=== PATIENT | female | born 1955 | race Caucasian/White ===

== ENCOUNTER 2017-06-09 12:28 | Observation (INO) | payer MEDICARE, MEDICAID ==
[2017-06-09] MEDS ORDERED: HYDROmorphone 1 MG/ML Syringe IVPUSH ONE (13:34)
[2017-06-09] MEDS ORDERED: Sodium Chloride 0.9% 10 ML Syringe FLUSH PRN (13:34)
--- NOTE | 2017-06-09 13:36 | EDM.PDOC ---
ED HPI GENERAL MEDICAL PROBLEM - General Chief Complaint: Abdominal Pain Stated Complaint: ABDOMINAL PAIN Time Seen by Provider: 06/09/17 13:34 Source of Information: Reports: Patient, Family, Old Records, RN Notes Reviewed History Limitations: Reports: No Limitations - History of Present Illness INITIAL COMMENTS - FREE TEXT/NARRATIVE: 61-year-old female presents emergency department today with epigastric pain she is a former gastric bypass has had esophageal obstruction in the past secondary to fluid bolus, she states she was eating [employer] sandwich event happened again she's having difficulty swallowing her secretions any liquid products that she swallows gets regurgitated back up Left Upper Abdomen Pain Score (Numeric/FACES): 9 - Related Data Allergies Allergy/AdvReac Type Severity Reaction Status Date / Time venom-honey bee Allergy Severe Anaphylactic Verified 10/01/16 01:22 [bee venom (honey bee)] Shock Home Meds: Home Meds Loperamide [Imodium] 4 mg PO DAILY PRN 10/28/13 [History] Multivitamin [Multi-Vitamin Daily] 1 tab PO DAILY 10/28/13 [History] Zolpidem [Ambien] 5 mg PO BEDTIME PRN 10/28/13 [History] ClonazePAM [KlonoPIN] 1 mg PO BID PRN 12/16/14 [History] Levothyroxine 200 mcg PO DAILY 12/16/14 [History] Papaya [Papaya Enzyme] 1 tab PO QID PRN 12/16/14 [History] Calcium Citrate/Vitamin D3 [Calcium Citrate + D] 1 tab PO BID 07/30/15 [History] Cyanocobalamin (Vitamin B-12) [Cyanocobalamin Injection] 1,000 mcg IM ONETIME [History] Hydrocodone/Acetaminophen [Hydrocodon-Acetaminoph 7.5-325] 1 tab PO Q4H PRN [History] tiZANidine [Zanaflex] 4 mg PO TID PRN 07/30/15 [History] Past Medical History HEENT History: Reports: Impaired Vision Gastrointestinal History: Reports: Bowel Obstruction, Chronic Diarrhea Genitourinary History: Reports: Renal Calculus 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 Hematologic History: Reports: B12 Deficiency - Infectious Disease History Infectious Disease History: Reports: Chicken Pox, Measles, Mumps - Past Surgical History HEENT Surgical History: Reports: Adenoidectomy, Oral Surgery, Tonsillectomy GI Surgical History: Reports: Appendectomy, Bariatric Procedure, Cholecystectomy , Colonoscopy, EGD, Esophageal Dilatation, Hernia Repair/Other, Lysis of Adhesions Female Surgical History: Reports: Tubal Ligation Social & Family History - Family History Family Medical History: Noncontributory - Tobacco Use Smoking Status *Q: Current Every Day Smoker Years of Tobacco use: 46 Packs/Tins Daily: 0.7 Used Tobacco, but Quit: No Second Hand Smoke Exposure: Yes - Caffeine Use Caffeine Use: Reports: Coffee, Soda, Tea - Alcohol Use Days Per Week of Alcohol Use: 0 - Recreational Drug Use Recreational Drug Use: No Drug Use in Last 12 Months: Yes Recreational Drug Type: Reports: Marijuana/Hashish Recreational Drug Use Frequency: Monthly ED ROS GENERAL - Review of Systems Review Of Systems: See Below Constitutional: Reports: No Symptoms Respiratory: Reports: No Symptoms Cardiovascular: Reports: No Symptoms GI/Abdominal: Reports: Abdominal Pain, Difficulty Swallowing ED EXAM, GI/ABD - Physical Exam Exam: See Below Exam Limited By: No Limitations General Appearance: Alert, WD/WN, No Apparent Distress Respiratory/Chest: No Respiratory Distress, Lungs Clear, Normal Breath Sounds, No Accessory Muscle Use Cardiovascular: Regular Rate, Rhythm, No Murmur GI/Abdominal: Soft, Tenderness (Epigastric area) Course - Vital Signs Last Recorded V/S: Last Vital Signs Temp 98.1 F 06/09/17 12:44 Pulse 105 H 06/09/17 12:44 Resp 18 06/09/17 12:44 BP 127/88 06/09/17 12:44 Pulse Ox 95 06/09/17 12:44 - Orders/Labs/Meds Orders: Active Orders 24 hr Category Date Time Status Peripheral IV Care [RC] . DIRECTED Care 06/09/17 13:34 Ordered Sodium Chloride 0.9% [Saline Flush] Med 06/09/17 13:34 Ordered 10 ml FLUSH ASDIRECTED PRN Peripheral IV Insertion Adult [OM.PC] Urgent Oth 06/09/17 13:34 Ordered Medication Orders Sodium Chloride (Saline Flush) 10 ml FLUSH ASDIRECTED PRN PRN Reason: Keep Vein Open Meds: Medications Generic Name Dose Route Start Last Admin Trade Name Freq PRN Reason Stop Dose Admin Sodium Chloride 10 ml 06/09/17 13:34 Saline Flush FLUSH ASDIRECTED PRN Keep Vein Open Discontinued Medications Generic Name Dose Route Start Last Admin Trade Name Freq PRN Reason Stop Dose Admin Hydromorphone HCl 1 mg 06/09/17 13:34 Dilaudid IVPUSH 06/09/17 13:35 ONETIME ONE Departure - Departure Time of Disposition: 13:42 Disposition: Admitted As Inpatient 67 Condition: Fair Clinical Impression: Dysphagia Qualifiers: Dysphagia type: unspecified Qualified Code(s): R13.10 - Dysphagia, unspecified - Discharge Information Forms: ED Department Discharge - My Orders Last 24 Hours: My Active Orders 06/09/17 13:34 Peripheral IV Care [RC] . DIRECTED Sodium Chloride 0.9% [Saline Flush] 10 ml FLUSH ASDIRECTED PRN Peripheral IV Insertion Adult [OM.PC] Urgent - Assessment/Plan Last 24 Hours: My Active Orders 06/09/17 13:34 Peripheral IV Care [RC] . DIRECTED Sodium Chloride 0.9% [Saline Flush] 10 ml FLUSH ASDIRECTED PRN Peripheral IV Insertion Adult [OM.PC] Urgent Plan: Assessment Acuity = acute Site and laterality = dysphagia complicated in a patient with history of esophageal obstruction and gastric bypass Etiology = probably secondary to food bolus Manifestations = none Location of injury = Home Lab values = none Plan Discussed case with Dr. Winters general surgery agreed to evaluate the patient in the hospital plan for EGD tomorrow morning Patient was in agreement with the plan all questions were answered, This note was dictated using [employer] voice recognition software please call with any questions.
[2017-06-09] MEDS ORDERED: tiZANidine 4 MG Tab PO PRN (13:47)
[2017-06-09] MEDS ORDERED: Zolpidem 5 MG Tab PO PRN (13:47)
[2017-06-09] MEDS ORDERED: PAPAYA PO PRN (13:47)
[2017-06-09] MEDS ORDERED: Acetaminophen/HYDROcodone 325-7.5 MG Tab PO PRN (13:47)
[2017-06-09] MEDS ORDERED: Loperamide 2 MG Cap PO PRN (13:47)
[2017-06-09] MEDS ORDERED: ClonazePAM 1 MG Tab PO PRN (13:47)
[2017-06-09] MEDS: Lactated Ringers 1,000 ML IV SCH (15:35)
[2017-06-09] MEDS ORDERED: PAPAYA ENZYME PO PRN (15:37)
[2017-06-09] MEDS ORDERED: Ondansetron 4 MG/2 ML SDV IVPUSH PRN (16:24)
[2017-06-09] MEDS ORDERED: Naloxone 0.4 MG/ML SDV IV PRN (16:32)
[2017-06-09] MEDS: HYDROmorphone/Normal Saline 15 MG/30 ML PCA IV PRN (16:55)
[2017-06-09] MEDS ORDERED: Calcium Carbonate/Vitamin D3 1500 MG-400 Units Tab PO SCH (21:00)
[2017-06-09] MEDS ORDERED: Nicotine 14 MG/24 Hr Patch TRDERM ONE (23:00)
[2017-06-10] MEDS: Lactated Ringers 1,000 ML IV SCH
[2017-06-10] MEDS: HYDROmorphone/Normal Saline 15 MG/30 ML PCA IV PRN (05:36)
[2017-06-10] MEDS ORDERED: Midazolam 1 MG/ML 2 ML SDV ONE (06:56)
[2017-06-10] MEDS ORDERED: fentaNYL 100 MCG/2 ML SDV ONE (06:56)
[2017-06-10] MEDS ORDERED: Propofol 200 MG/20 ML SDV ONE (06:56)
[2017-06-10] MEDS ORDERED: Glycopyrrolate 0.2 MG/ML 2 ML SYRINGE IVPUSH ONE (07:00)
[2017-06-10] MEDS ORDERED: Levothyroxine 100 MCG Tab PO SCH (07:30)
[2017-06-10] MEDS ORDERED: Multivitamins with Iron/Calcium/Folic Acid/Minerals Tab PO SCH (09:00)
[2017-06-10] MEDS ORDERED: Nicotine 14 MG/24 Hr Patch TRDERM SCH (09:00)
[2017-06-10 09:31] VITALS: BP 91/57
[2017-06-10] MEDS ORDERED: Cyanocobalamin (Vitamin B12) 1,000 MCG/ML SDV IM ONE (10:44)
--- NOTE | 2017-06-10 17:48 | PCM.PN ---
- General Info Date of Service: 06/10/17 Functional Status: Reports: pain controlled - Review of Systems General: Reports: No Symptoms HEENT: Reports: no symptoms Pulmonary: Reports: no symptoms Cardiovascular: Reports: No Symptoms Gastrointestinal: Reports: Abdominal pain, Nausea, Vomiting Genitourinary: Reports: no symptoms Musculoskeletal: Reports: no symptoms Skin: Reports: no symptoms Neurological: Reports: No Symptoms Psychiatric: Reports: no symptoms - Patient Data Vitals - most recent: Last Vital Signs Temp 99.2 F 06/10/17 09:30 Pulse 98 06/10/17 09:30 Resp 18 06/10/17 09:30 BP 91/57 L 06/10/17 09:30 Pulse Ox 94 L 06/10/17 09:00 Weight - most recent: 191 lb 8.002 oz I&O - last 24 hours: Intake & Output 06/10/17 06/10/17 06/10/17 06:59 14:59 22:59 Intake Total 1197 900 Output Total 300 500 Balance 897 400 Med Orders - Current: Current Medications Discontinued Medications Hydrocodone Bitart/Acetaminophen (Isaban 325-7.5 Mg) 1 tab PO Q4H PRN PRN Reason: Pain Last Admin: 06/09/17 15:41 Dose: 1 tab Calcium Carbonate (Caltrate 600+D 1500 Mg-400 Units) 1 tab PO BID EFREN Last Admin: 06/09/17 21:22 Dose: 1 tab Clonazepam (Klonopin) 1 mg PO BID PRN PRN Reason: Anxiety Last Admin: 06/09/17 21:28 Dose: 1 mg Cyanocobalamin (Vitamin B12) 1,000 mcg IM ONETIME ONE Stop: 06/10/17 10:45 Last Admin: 06/10/17 10:38 Dose: 1,000 mcg Fentanyl (Sublimaze) Confirm Administered Dose 100 mcg .ROUTE .STK-MED ONE Stop: 06/10/17 06:57 Glycopyrrolate (Robinul) 0.4 mg IVPUSH ONETIME ONE Stop: 06/10/17 07:01 Last Admin: 06/10/17 07:05 Dose: 0.4 mg Hydromorphone HCl (Dilaudid) 1 mg IVPUSH ONETIME ONE Stop: 06/09/17 13:35 Last Admin: 06/09/17 13:46 Dose: 1 mg Hydromorphone HCl (Dilaudid Manager Of Program 15 Mg In Ns 30 Ml) 0 mg IV ASDIRECTED PRN; Protocol PRN Reason: PAIN Last Admin: 06/10/17 05:36 Dose: 15 mg Lactated Ringer's (Ringers, Lactated) 1,000 mls @ 125 mls/hr IV ASDIRECTED EFREN Last Admin: 06/10/17 00:00 Dose: 125 mls/hr Levothyroxine Sodium (Synthroid) 200 mcg PO DAILY@0730 [facility] Last Admin: 06/10/17 11:03 Dose: Not Given Loperamide HCl (Imodium) 4 mg PO DAILY PRN PRN Reason: Other Midazolam HCl (Versed 1 Mg/Ml) Confirm Administered Dose 2 mg .ROUTE .STK-MED ONE Stop: 06/10/17 06:57 Multivitamins/Minerals (Thera M Plus) 1 tab PO DAILY [facility] Naloxone HCl (Narcan) 0.1 mg IV ASDIRECTED PRN PRN Reason: decreased respiratory rate Nicotine (Habitrol) 14 mg TRDERM DAILY [facility] Last Admin: 06/10/17 11:03 Dose: Not Given Nicotine (Habitrol) 14 mg TRDERM ONETIME ONE Stop: 06/09/17 23:01 Last Admin: 06/09/17 23:05 Dose: 14 mg Ondansetron HCl (Zofran) 4 mg IVPUSH Q4H PRN PRN Reason: Nausea/Vomiting Last Admin: 06/09/17 16:57 Dose: 4 mg Papaya Enzyme (Ptom) 1 each PO QID PRN PRN Reason: Other Propofol (Diprivan 20 Ml) Confirm Administered Dose 200 mg .ROUTE .STK-MED ONE Stop: 06/10/17 06:57 Sodium Chloride (Saline Flush) 10 ml FLUSH ASDIRECTED PRN PRN Reason: Keep Vein Open Last Admin: 06/09/17 13:47 Dose: 10 ml Tizanidine HCl (Zanaflex) 4 mg PO TID PRN PRN Reason: Muscle Spasm Zolpidem Tartrate (Ambien) 5 mg PO BEDTIME PRN PRN Reason: Insomnia Last Admin: 06/09/17 21:28 Dose: 5 mg - Exam Quality Assessment: DVT prophylaxis General: alert, oriented, cooperative, mild distress HEENT: Pupils equal, Pupils reactive Neck: supple Lungs: Clear to auscultation, Normal respiratory effort Cardiovascular: Regular Rate, Regular Rhythm Abdomen: soft, no tenderness (Female) Exam: Deferred Back Exam: Normal Inspection, Full Range of Motion Extremities: no edema Skin: warm, dry, intact Neurological: no new focal deficit Psy/Mental Status: alert, normal affect, normal mood - Problem List & Annotations (1) Dysphagia SNOMED Code(s): 00176087, 081356140 Code(s): R13.10 - DYSPHAGIA, UNSPECIFIED Status: Acute Qualifiers: Dysphagia type: unspecified Qualified Code(s): R13.10 - Dysphagia, unspecified (2) H/O gastric bypass SNOMED Code(s): 614225075, 51399956, 312420436 Code(s): Z98.89 - OTHER SPECIFIED POSTPROCEDURAL STATES * DO NOT USE * Status: Chronic - Problem List Review Problem List Initiated/Reviewed/Updated: Yes - My Orders Last 24 Hours: Assessment: Dysphagia with possible Foreign body Plan: Scheduled EGD with Possible Removal of Foreign Body and Possible Dilation IV Sedation Mingo Winters MD - Plan discharge after EGD Follow up in clinic in 1 month or prn Desirae Escalona
--- NOTE | 2017-06-10 18:29 | DISCH ---
FINAL DIAGNOSES: 1. Foreign body obstructing gastrojejunostomy. 2. Bariatric surgery status. 3. Treated hypothyroidism. 4. Nicotine addiction. OPERATIVE PROCEDURE: 1. Upper GI endoscopy with:. a. Removal of foreign body lodged at gastrojejunostomy. b. Dilation of gastrojejunostomy with a Savary dilator was done on 06/10. SUMMARY: This is a 61-year-old female status post gastric bypass. She has been edentulous for some time. Given this, she periodically gets meat caught in the area of her gastrojejunostomy, apparently yesterday she had this problem and overnight, has been able to swallow some liquids but in general is not after the patient was taken to the operating room, the meat was removed from the area where it was lodged at gastrojejunostomy and using a Savary dilator, the gastrojejunostomy was dilated up to a 54-Serbian size. The plan will be to have the patient resume a full liquid diet for the next five days and then resume soft well chewed solids and otherwise resuming her usual home medications. Follow up Desirae Nolen in [facility] in one month.
--- NOTE | 2017-06-15 13:25 | OR ---
DATE OF PROCEDURE: 06/10/2017 PREOPERATIVE DIAGNOSIS: Foreign body (ingested meat) lodged at the esophagogastric junction. POSTOPERATIVE DIAGNOSES: 1. Foreign body (ingested meat) lodged at the esophagogastric junction. 2. Mild stricturing of gastrojejunostomy. OPERATIVE PROCEDURES: Upper GI endoscopy with; 1. Removal of foreign body at gastrojejunostomy (57833). 2. Dilation of gastrojejunostomy (50714). ANESTHESIA: IV sedation. INDICATION FOR PROCEDURE: The patient once again presents with some meat lodged in her gastrojejunostomy. The patient is status post previous gastric bypass. She has been unable to get teeth fitted in and periodically has been presenting with ingested meat lodged at the gastrojejunostomy. Plan is to proceed with an upper GI endoscopy with removal of foreign body and biopsies and/or dilation of gastrojejunostomy as indicated. Potential risks including bleeding, perforation, aspiration of the gastric and esophageal contents were reviewed, and the patient wishes to proceed. DETAILS OF PROCEDURE: The patient was taken to the operating room and placed in a left lateral decubitus position. IV sedation was administered, after which the upper GI endoscope was passed initially into the esophagus. Some retained saliva was present in that area, and this was evacuated. As one came down into the distal esophagus, the ingested meat was noted to be lodged at the gastrojejunostomy extending somewhat into the esophagus. This was then sequentially broken up and then pushed through the anastomosis with the gastroscope and from that point into the small bowel. Once all the fluid was evacuated out of the esophagus and area of the gastric pouch, a guidewire was then passed into the small bowel and the gastroscope was then withdrawn. A 54- [place] Islander Savary dilator was then passed over the guidewire to a point where the 54-[place] Islander would be present at the gastrojejunostomy. This was held in position for 30 seconds, after which the dilator and wire were removed. The patient was taken to the recovery room in a satisfactory condition. There were no evident complications. Mingo Winters MD /[id number]
== END 2017-06-10 11:05 | disposition home or self-care (01) ==
LOC: JP.ED 12:28 → JP.2SS 13:45
PROVIDERS: ADMIT Surgery; ATTEND Surgery
DX: K94.23 Gastrostomy malfunction (principal); T18.128A Food in esophagus causing other injury, initial encounter; M19.90 Unspecified osteoarthritis, unspecified site; E03.9 Hypothyroidism, unspecified; F17.210 Nicotine dependence, cigarettes, uncomplicated; Z90.49 Acquired absence of other specified parts of digestive tract; Z98.890 Other specified postprocedural states; Z98.84 Bariatric surgery status; Z79.899 Other long term (current) drug therapy; Z91.030 Bee allergy status
CPT/HCPCS: 43245; 43247; 96361; 96372; 96374; 96375; 99284; A9270; G0378; J1170; J2250; J2405; J2704; J3010; J3420; J7050; J7120; 96365; 96366

== ENCOUNTER 2017-08-29 12:06 | Observation (INO) | payer MEDICARE, MEDICAID ==
[2017-08-29] MEDS ORDERED: Sodium Chloride 0.9% 10 ML Syringe FLUSH PRN (12:38)
[2017-08-29] MEDS ORDERED: HYDROmorphone 0.5 MG/0.5 ML Syringe IVPUSH ONE (12:39)
[2017-08-29] MEDS ORDERED: Sodium Chloride 0.9% 1,000 ML IV SCH (12:45)
--- NOTE | 2017-08-29 12:48 | EDM.PDOC ---
ED HPI GENERAL MEDICAL PROBLEM - General Chief Complaint: Gastrointestinal Problem Stated Complaint: SOMETHING STUCK IN STOMACH Time Seen by Provider: 08/29/17 12:07 Source of Information: Reports: Patient History Limitations: Reports: No Limitations - History of Present Illness INITIAL COMMENTS - FREE TEXT/NARRATIVE: Jim is a 62-year-old female with a history of a gastric bypass he presents to the emergency department today with what she feels that the piece of chicken skin stuck in her esophagus. Patient had this happen back in May at which time she had dilatation done at that time of the gastrojejunostomy site and foreign body was removed by Dr. Winters in the operating room. Patient reports similar presentation, she has been unable to keep any fluids or food down since 1500 yesterday. Patient does report small amounts of red blood in her emesis, she is stooling normally, she denies any hematochezia or fever. Patient attended a yesterday of her [id number]-dry, she reports that when she went to [facility] to eat she forgot to break the chicken skin into small pieces as she knows she supposed to. Patient reports that eating or drinking makes her pain worse, 7/10 currently in left upper abdomen. Nothing has improved her pain. Duration: Day(s): (1) - Related Data Allergies Allergy/AdvReac Type Severity Reaction Status Date / Time venom-honey bee Allergy Severe Anaphylactic Verified 10/01/16 01:22 [bee venom (honey bee)] Shock Home Meds: Home Meds Loperamide [Imodium] 4 mg PO DAILY PRN 10/28/13 [History] Multivitamin [Multi-Vitamin Daily] 1 tab PO DAILY 10/28/13 [History] Zolpidem [Ambien] 5 mg PO BEDTIME PRN 10/28/13 [History] ClonazePAM [KlonoPIN] 1 mg PO BID PRN 12/16/14 [History] Levothyroxine 200 mcg PO DAILY 12/16/14 [History] Papaya [Papaya Enzyme] 1 tab PO QID PRN 12/16/14 [History] Calcium Citrate/Vitamin D3 [Calcium Citrate + D] 1 tab PO BID 07/30/15 [History] Hydrocodone/Acetaminophen [Hydrocodon-Acetaminoph 7.5-325] 1 tab PO Q4H PRN [History] tiZANidine [Zanaflex] 4 mg PO TID PRN 07/30/15 [History] *Vitamin B 1 06/09/17 [History] Past Medical History HEENT History: Reports: Impaired Vision Gastrointestinal History: Reports: Bowel Obstruction, Chronic Diarrhea Genitourinary History: Reports: Renal Calculus 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 Hematologic History: Reports: B12 Deficiency - Infectious Disease History Infectious Disease History: Reports: Chicken Pox, Measles, Mumps - Past Surgical History HEENT Surgical History: Reports: Adenoidectomy, Oral Surgery, Tonsillectomy GI Surgical History: Reports: Appendectomy, Bariatric Procedure, Cholecystectomy , Colonoscopy, EGD, Esophageal Dilatation, Hernia Repair/Other, Lysis of Adhesions, Other (See Below) Other GI Surgeries/Procedures: food particle lodged. Female Surgical History: Reports: Tubal Ligation Musculoskeletal Surgical History: Reports: Knee Replacement Social & Family History - Family History Family Medical History: Noncontributory - Tobacco Use Smoking Status *Q: Current Every Day Smoker Years of Tobacco use: 45 Packs/Tins Daily: 0.5 Used Tobacco, but Quit: No Second Hand Smoke Exposure: Yes - Caffeine Use Caffeine Use: Reports: Coffee, Energy Drinks, Soda Caffeine Use Comment: 1-2 per day - Alcohol Use Days Per Week of Alcohol Use: 0 - Recreational Drug Use Recreational Drug Use: No Drug Use in Last 12 Months: Yes Recreational Drug Type: Reports: Marijuana/Hashish Recreational Drug Use Frequency: Monthly ED ROS GENERAL - Review of Systems Review Of Systems: ROS reveals no pertinent complaints other than HPI. ED EXAM, GI/ABD - Physical Exam Exam: See Below Exam Limited By: No Limitations General Appearance: Alert, WD/WN, No Apparent Distress Throat/Mouth: Normal Inspection, Normal Oropharynx, Other (Edentulous) Head: Atraumatic Respiratory/Chest: No Respiratory Distress, Lungs Clear Cardiovascular: Normal Peripheral Pulses, Regular Rate, Rhythm, No Murmur GI/Abdominal Exam: Normal Bowel Sounds, Soft, Tender (Mild, left upper/mid abdomen) Back Exam: Normal Inspection Extremities: Normal Inspection Neurological: Alert, Oriented, CN II-XII Intact. No: Sensory/Motor Deficit Psychiatric: Normal Affect, Normal Mood Skin Exam: Warm, Dry, Intact Course - Vital Signs Last Recorded V/S: Last Vital Signs Temp 36.6 C 08/29/17 12:26 Pulse 63 08/29/17 12:26 Resp 14 08/29/17 12:26 BP 123/74 08/29/17 12:26 Pulse Ox 94 L 08/29/17 12:26 Jim is a 62-year-old female with a history of a gastric bypass and frequent issues with foreign bodies in her esophagus with removal in the orbit Dr. Winters , last one being on June 10. Please refer to history of present illness and focused exam, patient on exam is well-hydrated, she is nontoxic appearing she is hemodynamically stable, she has mild tenderness on exam is noted. Peripheral IV was established, patient was given normal saline, Zofran for nausea and Dilaudid for pain with good improvement in her symptoms. CBC and CMP as well as lipase are pending. I discussed patient with Dr. Winters who would like patient admitted to observation status and he will plan on taking patient to the OR tomorrow for foreign body removal. Patient's has been notified of plan of care and her daughter are in agreement, patient has been notified that she is to have nothing to eat or drink until after her procedure. Observation orders were initiated by Officer, patient will be admitted in stable condition. - Orders/Labs/Meds Orders: Active Orders 24 hr Category Date Time Status Peripheral IV Care [RC] . DIRECTED Care 08/29/17 12:38 Active Nothing per Oral Now Diet [DIET] Diet 08/29/17 Dinner Active CBC WITH AUTO DIFF [HEME] Stat Lab 08/29/17 12:38 Ordered COMPREHENSIVE METABOLIC PN,CMP [CHEM] Stat Lab 08/29/17 12:38 Ordered LIPASE [CHEM] Stat Lab 08/29/17 12:38 Ordered Sodium Chloride 0.9% [Normal Saline] 1,000 ml Med 08/29/17 12:45 Active IV ASDIRECTED Sodium Chloride 0.9% [Saline Flush] Med 08/29/17 12:38 Active 10 ml FLUSH ASDIRECTED PRN Peripheral IV Insertion Adult [OM.PC] Routine Oth 08/29/17 12:38 Ordered Medication Orders Sodium Chloride (Normal Saline) 1,000 mls @ 999 mls/hr IV ASDIRECTED EFREN Sodium Chloride (Saline Flush) 10 ml FLUSH ASDIRECTED PRN PRN Reason: Keep Vein Open Meds: Medications Generic Name Dose Route Start Last Admin Trade Name Freq PRN Reason Stop Dose Admin Sodium Chloride 1,000 mls @ 999 mls/hr 08/29/17 12:45 Normal Saline IV ASDIRECTED EFREN Sodium Chloride 10 ml 08/29/17 12:38 Saline Flush FLUSH ASDIRECTED PRN Keep Vein Open Discontinued Medications Generic Name Dose Route Start Last Admin Trade Name Freq PRN Reason Stop Dose Admin Hydromorphone HCl 0.5 mg 08/29/17 12:39 Dilaudid IVPUSH 08/29/17 12:40 ONETIME ONE Ondansetron HCl 4 mg 08/29/17 12:39 Zofran IVPUSH 08/29/17 12:40 ONETIME ONE Departure - Departure Time of Disposition: 13:30 Disposition: Admitted As Inpatient 67 Clinical Impression: Foreign body in esophagus Qualifiers: Encounter type: initial encounter Qualified Code(s): T18.108A - Unspecified foreign body in esophagus causing other injury, initial encounter - Discharge Information Referrals: PCP,None [Primary Care Provider] - Forms: ED Department Discharge - My Orders Last 24 Hours: My Active Orders 08/29/17 12:38 Peripheral IV Care [RC] . DIRECTED CBC WITH AUTO DIFF [HEME] Stat COMPREHENSIVE METABOLIC PN,CMP [CHEM] Stat LIPASE [CHEM] Stat Sodium Chloride 0.9% [Saline Flush] 10 ml FLUSH ASDIRECTED PRN Peripheral IV Insertion Adult [OM.PC] Routine 08/29/17 12:45 Sodium Chloride 0.9% [Normal Saline] 1,000 ml IV ASDIRECTED 08/29/17 Dinner Nothing per Oral Now Diet [DIET] - Assessment/Plan Last 24 Hours: My Active Orders 08/29/17 12:38 Peripheral IV Care [RC] . DIRECTED CBC WITH AUTO DIFF [HEME] Stat COMPREHENSIVE METABOLIC PN,CMP [CHEM] Stat LIPASE [CHEM] Stat Sodium Chloride 0.9% [Saline Flush] 10 ml FLUSH ASDIRECTED PRN Peripheral IV Insertion Adult [OM.PC] Routine 08/29/17 12:45 Sodium Chloride 0.9% [Normal Saline] 1,000 ml IV ASDIRECTED 08/29/17 Dinner Nothing per Oral Now Diet [DIET]
[2017-08-29] MEDS ORDERED: Zolpidem 5 MG Tab PO PRN (12:58)
[2017-08-29] MEDS ORDERED: ClonazePAM 1 MG Tab PO PRN (12:58)
[2017-08-29] MEDS: Ondansetron 4 MG/2 ML SDV IV PRN ×3 (14:05→22:30)
[2017-08-29] MEDS: Ondansetron 4 MG/2 ML SDV IVPUSH ONE ×2 (14:06→14:12)
[2017-08-29] MEDS: HYDROmorphone 1 MG/ML Syringe IVPUSH PRN ×5 (15:32→22:30)
[2017-08-29] MEDS: Lactated Ringers 1,000 ML IV SCH ×2 (15:32→23:25)
[2017-08-29] MEDS: Nicotine 14 MG/24 Hr Patch TRDERM SCH (19:41)
[2017-08-30] MEDS: HYDROmorphone 1 MG/ML Syringe IVPUSH PRN ×5 (00:37→07:27)
[2017-08-30] MEDS: Ondansetron 4 MG/2 ML SDV IV PRN ×2 (02:28→06:20)
[2017-08-30] MEDS ORDERED: Glycopyrrolate 0.2 MG/ML 2 ML SDV IVPUSH ONE (06:56)
[2017-08-30] MEDS ORDERED: fentaNYL 100 MCG/2 ML SDV ONE (07:13)
[2017-08-30] MEDS ORDERED: Propofol 200 MG/20 ML SDV ONE (07:13)
[2017-08-30] MEDS ORDERED: Midazolam 1 MG/ML 2 ML SDV ONE (07:13)
[2017-08-30] MEDS ORDERED: Bupivacaine 0.5%/EPINEPHrine 1:200,000 50 ML MDV ONE (07:25)
[2017-08-30] MEDS: Lactated Ringers 1,000 ML IV SCH (07:26)
[2017-08-30] MEDS ORDERED: Flumazenil 0.1 MG/ML 5 ML MDV ONE (07:58)
[2017-08-30] MEDS ORDERED: Naloxone 0.4 MG/ML SDV ONE (07:58)
[2017-08-30] MEDS: Nicotine 14 MG/24 Hr Patch TRDERM SCH (08:49)
[2017-08-30] MEDS: Levothyroxine 100 MCG Tab PO SCH ×2 (08:51→08:53)
[2017-08-30] MEDS ORDERED: Acetaminophen/HYDROcodone 325-7.5 MG Tab PO PRN (10:59)
[2017-08-30 11:49] VITALS: BP 98/62
--- NOTE | 2017-08-31 08:32 | OR ---
DATE OF PROCEDURE: 08/30/2017 PREOPERATIVE DIAGNOSIS: Obstructing food bolus at gastrojejunostomy. POSTOPERATIVE DIAGNOSIS: Obstructing food bolus at gastrojejunostomy. OPERATIVE PROCEDURES: Upper GI endoscopy with; 1. Dilation of gastrojejunostomy (24842). 2. Removal of obstructing food bolus at gastrojejunostomy (11342). ANESTHESIA: IV sedation. INDICATION FOR PROCEDURE: This is a 62-year-old female presenting with an obstructing meat bolus after eating some chicken. She is status post gastric bypass. Presently, she is edentulous and has intermittent problems with getting food caught at the level of the gastrojejunostomy. She presented with that picture yesterday and was admitted. The plan is to proceed with upper GI endoscopy with removal of the food bolus as well as possible dilation as indicated. Potential risks including bleeding and perforation, aspiration of esophageal contents and such were reviewed, and the patient wishes to proceed. DETAILS OF PROCEDURE: The patient was taken to the operating room and was placed in a left lateral decubitus position. IV sedation was administered, after which the upper GI endoscope was passed orally through the length of the esophagus, through the area of the gastrojejunostomy. Some balled up meat was present. This was initially unable to be pushed through the gastrojejunostomy. The Bard gastrointestinal balloon catheter was then centered across the gastrojejunostomy and inflated to 45-Nauruan size. After this, it was inflated, but then deflated. This allowed portion of food to be pushed through the gastrojejunostomy, some additional was also removed through the basket externally. At that point, no further problems in the area of the gastrojejunostomy were noted. After removal of the scope, the patient was noted to have a markedly low pulse oximeter and had some transient bradycardia. With bagging, this typically corrected itself. The patient was taken to the recovery room in a satisfactory condition. Mingo Winters MD /[id number]
--- NOTE | 2017-10-23 13:32 | DISCH ---
FINAL DIAGNOSIS: Obstructing food bolus at gastrojejunostomy. SECONDARY DIAGNOSIS: Bariatric surgery status. OPERATIVE PROCEDURE: This was done on 08/30/17, upper GI endoscopy with: 1. Dilation of gastrojejunostomy. 2. Removal of obstructing food bolus at gastrojejunostomy. SUMMARY: This is a 62-year-old, who periodically gets meat caught at her gastrojejunostomy. She is edentulous and status post previous Fatimah-en-Y gastric bypass. She is admitted with obstructing food bolus. After admission, the patient underwent upper endoscopy with removal of the bolus and dilation of gastrojejunostomy. She actually was able to tolerate diet satisfactorily and was discharged home. Continue present home medications and follow up with Desirae Nolen PA-C in roughly 1 month.
== END 2017-08-30 12:50 | disposition home or self-care (01) ==
LOC: JP.ED 12:06 → JP.MS 12:53
PROVIDERS: ADMIT Surgery; ATTEND Surgery
DX: T18.8XXA Foreign body in other parts of alimentary tract, initial encounter (principal); F41.9 Anxiety disorder, unspecified; F32.9 Major depressive disorder, single episode, unspecified; E03.9 Hypothyroidism, unspecified; Z98.84 Bariatric surgery status; Z91.030 Bee allergy status; Z79.899 Other long term (current) drug therapy; Z90.49 Acquired absence of other specified parts of digestive tract; Z98.890 Other specified postprocedural states; Z98.51 Tubal ligation status; Z96.659 Presence of unspecified artificial knee joint; F17.210 Nicotine dependence, cigarettes, uncomplicated
CPT/HCPCS: 36415; 43245; 43247; 80053; 83690; 85025; 96361; 96374; 96375; 96376; 99284; 99285; A9270; G0378; J1170; J2250; J2310; J2405; J2704; J3010; J7120; J3490

== ENCOUNTER → 2018-02-13 | Day surgery (SDC) | payer MEDICARE, MEDICAID ==
[~2018-02-13] MED LIST: Midazolam 1 MG/ML 2 ML SDV ONE; Propofol 200 MG/20 ML SDV ONE; fentaNYL 100 MCG/2 ML SDV ONE
--- NOTE | 2018-02-13 13:58 | EDM.PDOC ---
ED HPI GENERAL MEDICAL PROBLEM - General Chief Complaint: Abdominal Pain Stated Complaint: GASTRIC PT/SOMETHING STUCK Time Seen by Provider: 02/13/18 13:15 Source of Information: Reports: Patient, Family History Limitations: Reports: No Limitations - History of Present Illness INITIAL COMMENTS - FREE TEXT/NARRATIVE: 62-year-old female with a history of recurring esophageal obstruction, presents with another instruction since last evening after eating pork chops. She can swallow anything and has persistant discomfort and fullness in the epigastric area. No shortness of breath. Onset: Sudden (Last evening) Severity: Moderate Upper Abdomen Pain Score (Numeric/FACES): 10 - Related Data Allergies Allergy/AdvReac Type Severity Reaction Status Date / Time venom-honey bee Allergy Severe Anaphylactic Verified 10/01/16 01:22 [bee venom (honey bee)] Shock Home Meds: Home Meds Loperamide [Imodium] 4 mg PO DAILY PRN 10/28/13 [History] Multivitamin [Multi-Vitamin Daily] 1 tab PO DAILY 10/28/13 [History] Zolpidem [Ambien] 5 mg PO BEDTIME PRN 10/28/13 [History] ClonazePAM [KlonoPIN] 1 mg PO BID PRN 12/16/14 [History] Levothyroxine 200 mcg PO DAILY 12/16/14 [History] Papaya [Papaya Enzyme] 1 tab PO QID PRN 12/16/14 [History] Calcium Citrate/Vitamin D3 [Calcium Citrate + D] 1 tab PO BID 07/30/15 [History] tiZANidine [Zanaflex] 4 mg PO TID PRN 07/30/15 [History] *Vitamin B 1 06/09/17 [History] Past Medical History HEENT History: Reports: Impaired Vision Gastrointestinal History: Reports: Bowel Obstruction, Cholelithiasis, Chronic Diarrhea Genitourinary History: Reports: Renal Calculus [employer] History: Reports: , Other (See Below) Other OB/BYN History: stillbirth Musculoskeletal History: Reports: Arthritis, Back Pain, Chronic, Fibromyalgia Neurological History: Reports: Migraines Psychiatric History: Reports: Anxiety, Bipolar, Depression Endocrine/Metabolic History: Reports: Hypothyroidism, Other (See Below) Other Endocrine/Metabolic History: Hx of graves disease. Hematologic History: Reports: B12 Deficiency - Infectious Disease History Infectious Disease History: Reports: Chicken Pox, Measles, Mumps - Past Surgical History HEENT Surgical History: Reports: Adenoidectomy, Oral Surgery, Tonsillectomy GI Surgical History: Reports: Appendectomy, Bariatric Procedure, Cholecystectomy , Colonoscopy, EGD, Esophageal Dilatation, Hernia Repair/Other, Lysis of Adhesions, Other (See Below) Other GI Surgeries/Procedures: food particle lodged. Female Surgical History: Reports: Tubal Ligation Musculoskeletal Surgical History: Reports: Knee Replacement Social & Family History - Family History Family Medical History: Noncontributory - Tobacco Use Smoking Status *Q: Current Every Day Smoker Years of Tobacco use: 47 Packs/Tins Daily: 0.5 Used Tobacco, but Quit: No Second Hand Smoke Exposure: Yes - Caffeine Use Caffeine Use: Reports: Coffee, Soda Caffeine Use Comment: 1-2 per day - Alcohol Use Days Per Week of Alcohol Use: 0 - Recreational Drug Use Recreational Drug Use: Yes Drug Use in Last 12 Months: Yes Recreational Drug Type: Reports: Marijuana/Hashish Recreational Drug Use Frequency: Monthly ED ROS GENERAL - Review of Systems Review Of Systems: See Below Constitutional: Denies: Fever Respiratory: Denies: Shortness of Breath GI/Abdominal: Reports: Abdominal Pain, Nausea : Reports: No Symptoms Skin: Reports: No Symptoms Neurological: Denies: Headache ED EXAM, GI/ABD - Physical Exam Exam: See Below Exam Limited By: No Limitations General Appearance: Alert, No Apparent Distress (Looks uncomfortable but not distressed) Eyes: Bilateral: Normal Appearance (No jaundice) Head: Atraumatic Respiratory/Chest: No Respiratory Distress, Lungs Clear Cardiovascular: Regular Rate, Rhythm GI/Abdominal Exam: Soft, Tender (Some discomfort with palpation of the epigastric area, no guarding or rebound) Course - Vital Signs Last Recorded V/S: Last Vital Signs Temp 97.3 F 02/13/18 14:45 Pulse 90 02/13/18 14:50 Resp 16 02/13/18 14:50 BP 138/97 H 02/13/18 14:50 Pulse Ox 96 02/13/18 14:50 - Orders/Labs/Meds Meds: Medications Discontinued Medications Generic Name Dose Route Start Last Admin Trade Name Freq PRN Reason Stop Dose Admin Fentanyl Confirm 02/13/18 14:05 Sublimaze Administered 02/13/18 14:06 Dose 100 mcg .ROUTE .STK-MED ONE Midazolam HCl Confirm 02/13/18 14:05 Versed 1 Mg/Ml Administered 02/13/18 14:06 Dose 2 mg .ROUTE .STK-MED ONE Propofol Confirm 02/13/18 14:05 Diprivan 20 Ml Administered 02/13/18 14:06 Dose 200 mg .ROUTE .STK-MED ONE - Re-Assessments/Exams Free Text/Narrative Re-Assessment/Exam: 02/13/18 13:57 Dr. Goodrich was consulted for an EGD for removal of esophageal foreign body. An IV was started. 02/13/18 15:16 Patient returned from the procedure asymptomatic and able to swallow water. There were no complications and she'll be discharged to follow-up as needed. Departure - Departure Time of Disposition: 15:24 Disposition: Home, Self-Care 01 Condition: Good Clinical Impression: Foreign body in esophagus Qualifiers: Encounter type: initial encounter Qualified Code(s): T18.108A - Unspecified foreign body in esophagus causing other injury, initial encounter - Discharge Information
[2018-02-13 14:51] VITALS: BP 138/97
--- NOTE | 2018-02-15 12:08 | OR ---
DATE OF PROCEDURE: 02/13/2018 PROCEDURE: Esophagogastroduodenoscopy. FINDINGS: Normal EGD (no evidence of foreign body). PREOPERATIVE DIAGNOSIS: Esophagogastroduodenoscopy for foreign body. POSTOPERATIVE DIAGNOSIS: Esophagogastroduodenoscopy for foreign body. RISKS: Risks, benefits, alternatives, and limitations including, but not limited to infection, bleeding, and perforation were explained to the patient, and she wished to proceed. PROCEDURE IN DETAIL: The patient was placed in the left lateral decubitus position. The EGD scope was introduced and advanced atraumatically. This was easily advanced into the gastrojejunal anastomosis. Small bowel was normal without any abnormality. There was no retained food, no narrowing, no stricturing. The gastrojejunal anastomosis was described as large. There was no evidence of wall thickening, narrowing, stricturing, old or new blood, and as previously stated, no retained material. The mucosa of the small bowel was also normal. The scope was brought back. The esophagus was inspected and also showed normal architecture. The patient tolerated the procedure well. Luc Goodrich MD /[id number]
== END ==
LOC: JP.ED 12:32 → JP.SDS 14:09
PROVIDERS: ATTEND Surgery
DX: T18.108A Unspecified foreign body in esophagus causing other injury, initial encounter (principal); F41.9 Anxiety disorder, unspecified; F31.9 Bipolar disorder, unspecified; E03.9 Hypothyroidism, unspecified; Z91.030 Bee allergy status; Z79.899 Other long term (current) drug therapy; K52.9 Noninfective gastroenteritis and colitis, unspecified; F17.210 Nicotine dependence, cigarettes, uncomplicated; X58.XXXA Exposure to other specified factors, initial encounter
CPT/HCPCS: 43235; J2250; J2704; J3010; 99283

== ENCOUNTER 2019-04-12 16:58 | Observation (INO) | payer MEDICARE, MEDICAID ==
[2019-04-12] MEDS ORDERED: Sodium Chloride 0.9% 10 ML Syringe FLUSH PRN (18:10)
--- NOTE | 2019-04-12 18:18 | EDM.PDOC ---
ED HPI GENERAL MEDICAL PROBLEM - General Chief Complaint: Gastrointestinal Problem Stated Complaint: FOOD STUCK Time Seen by Provider: 04/12/19 17:40 Source of Information: Reports: Patient History Limitations: Reports: No Limitations - History of Present Illness INITIAL COMMENTS - FREE TEXT/NARRATIVE: 63-year-old female with chronic recurring esophageal and stomach obstruction with food presents with a sensation of obstruction for the last 6 hours after eating some radishes. She feels like if she tries to drink anything it comes up within minutes. It's a typical feeling that she has had in the past. No fevers or chills, no abdominal distention or diarrhea. Onset: Sudden Duration: Hour(s): (6 hours ago) Location: Reports: Abdomen Worsens with: Reports: Other (Attempting to swallow liquids or food) Associated Symptoms: Denies: Chest Pain, Cough, Malaise, Nausea/Vomiting, Shortness of Breath Abdomen Pain Score (Numeric/FACES): 7 - Related Data Allergies Allergy/AdvReac Type Severity Reaction Status Date / Time venom-honey bee Allergy Severe Anaphylactic Verified 04/12/19 17:20 [bee venom (honey bee)] Shock Home Meds: Home Meds Loperamide [Imodium] 4 mg PO DAILY PRN 10/28/13 [History] Multivitamin [Multi-Vitamin Daily] 1 tab PO DAILY 10/28/13 [History] Zolpidem [Ambien] 10 mg PO BEDTIME PRN 10/28/13 [History] ClonazePAM [KlonoPIN] 1 mg PO BID PRN 12/16/14 [History] Levothyroxine 200 mcg PO DAILY 12/16/14 [History] Papaya [Papaya Enzyme] 1 tab PO QID PRN 12/16/14 [History] Calcium Citrate/Vitamin D3 [Calcium Citrate + D] 1 tab PO BID 07/30/15 [History] tiZANidine [Zanaflex] 4 mg PO TID PRN 07/30/15 [History] *Vitamin B 1 cap PO DAILY 06/09/17 [History] Hydrocodone/Acetaminophen [Lorcet Plus 7.5-325 mg Tablet] 1 each PO Q4HR [History] Past Medical History HEENT History: Reports: Impaired Vision Gastrointestinal History: Reports: Bowel Obstruction, Cholelithiasis, Chronic Diarrhea Genitourinary History: Reports: Renal Calculus [employer] History: Reports: , Other (See Below) Other [employer]OR History: stillbirth Musculoskeletal History: Reports: Arthritis, Back Pain, Chronic, Fibromyalgia Neurological History: Reports: Migraines Psychiatric History: Reports: Anxiety, Bipolar, Depression Endocrine/Metabolic History: Reports: Hypothyroidism, Other (See Below) Other Endocrine/Metabolic History: Hx of graves disease. Hematologic History: Reports: B12 Deficiency - Infectious Disease History Infectious Disease History: Reports: Chicken Pox, Measles, Mumps - Past Surgical History HEENT Surgical History: Reports: Adenoidectomy, Oral Surgery, Tonsillectomy GI Surgical History: Reports: Appendectomy, Bariatric Procedure, Cholecystectomy , Colonoscopy, EGD, Esophageal Dilatation, Hernia Repair/Other, Lysis of Adhesions, Other (See Below) Other GI Surgeries/Procedures: food particle lodged. Female Surgical History: Reports: Tubal Ligation Musculoskeletal Surgical History: Reports: Knee Replacement Social & Family History - Family History Family Medical History: Noncontributory - Tobacco Use Smoking Status *Q: Former Smoker Used Tobacco, but Quit: Yes Month/Year Tobacco Last Used: 7 months - Caffeine Use Caffeine Use: Reports: Coffee, Soda Caffeine Use Comment: 1-2 per day - Recreational Drug Use Recreational Drug Type: Reports: Marijuana/Hashish ED ROS GENERAL - Review of Systems Review Of Systems: See Below Constitutional: Denies: Fever, Chills HEENT: Reports: Other (edentulous) Respiratory: Denies: Shortness of Breath GI/Abdominal: Reports: Abdominal Pain, Nausea. Denies: Constipation, Diarrhea, Vomiting : Reports: No Symptoms Neurological: Reports: No Symptoms. Denies: Headache Psychiatric: Reports: No Symptoms ED EXAM, GI/ABD - Physical Exam Exam: See Below Exam Limited By: No Limitations General Appearance: Alert, No Apparent Distress, Other (Looks uncomfortable not distressed) Eyes: Bilateral: Normal Appearance Head: Atraumatic Respiratory/Chest: No Respiratory Distress, Lungs Clear Cardiovascular: Regular Rate, Rhythm GI/Abdominal Exam: Normal Bowel Sounds, Soft, Tender (Mild discomfort to palpation over the upper abdomen) Neurological: Alert, Oriented Course - Vital Signs Last Recorded V/S: Last Vital Signs Temp 97.0 F 04/13/19 06:56 Pulse 91 04/13/19 06:56 Resp 18 04/13/19 06:56 BP 133/67 04/13/19 06:56 Pulse Ox 94 L 04/13/19 06:56 - Orders/Labs/Meds Orders: Medication Orders Fentanyl (Sublimaze) 25 mcg IV Q2H PRN PRN Reason: PATRICIA Last Admin: 04/13/19 06:27 Dose: 25 mcg Admin: 04/13/19 04:27 Dose: 25 mcg Admin: 04/13/19 02:19 Dose: 25 mcg Admin: 04/13/19 00:16 Dose: 25 mcg Admin: 04/12/19 22:01 Dose: 25 mcg Admin: 04/12/19 19:40 Dose: 25 mcg Dextrose/Lactated Ringer's (Dextrose 5%-Lactated Ringers) 1,000 mls @ 100 mls/ hr IV ASDIRECTED EFREN Last Admin: 04/13/19 02:24 Dose: 100 mls/hr Lorazepam (Ativan) 0.5 mg IVPUSH Q2H PRN PRN Reason: ANXIETY Last Admin: 04/13/19 01:50 Dose: 0.5 mg Ondansetron HCl (Zofran) 4 mg IVPUSH Q4H PRN PRN Reason: Nausea/Vomiting Last Admin: 04/13/19 06:20 Dose: 4 mg Admin: 04/13/19 00:18 Dose: 4 mg Admin: 04/12/19 20:19 Dose: 4 mg Sodium Chloride (Saline Flush) 10 ml FLUSH ASDIRECTED PRN PRN Reason: Keep Vein Open Zolpidem Tartrate (Ambien) 5 mg PO BEDTIME PRN PRN Reason: Sleep Last Admin: 04/12/19 20:19 Dose: 5 mg Meds: Medications Generic Name Dose Route Start Last Admin Trade Name Freq PRN Reason Stop Dose Admin Fentanyl 25 mcg 04/12/19 18:36 04/13/19 06:27 Sublimaze IV 25 mcg Q2H PRN Administration PATRICIA Dextrose/Lactated Ringer's 1,000 mls @ 100 mls/hr 04/12/19 18:45 04/13/19 02: 24 Dextrose 5%-Lactated Ringers IV 100 mls/hr ASDIRECTED EFREN Administration Lorazepam 0.5 mg 04/12/19 18:36 04/13/19 01:50 Ativan IVPUSH 0.5 mg Q2H PRN Administration ANXIETY Ondansetron HCl 4 mg 04/12/19 19:58 04/13/19 06:20 Zofran IVPUSH 4 mg Q4H PRN Administration Nausea/Vomiting Sodium Chloride 10 ml 04/12/19 18:10 Saline Flush FLUSH ASDIRECTED PRN Keep Vein Open Zolpidem Tartrate 5 mg 04/12/19 19:58 04/12/19 20:19 Ambien PO 5 mg BEDTIME PRN Administration Sleep Discontinued Medications Generic Name Dose Route Start Last Admin Trade Name Prince PRN Reason Stop Dose Admin Fentanyl Confirm 04/13/19 07:02 Sublimaze Administered 04/13/19 07:03 Dose 100 mcg .ROUTE .STK-MED ONE Multivitamins/Minerals 10 ml/ 1,016.2 mls @ 200 mls/hr 04/12/19 18:45 20:00 Thiamine HCl 200 mg/ Folic IV 04/12/19 23:49 Not Given Acid 1 mg/ Magnesium Sulfate 2 ONETIME ONE gm/ Dextrose/Lactated Ringer' s Multivitamins/Minerals 10 ml/ 1,013 mls @ 250 mls/hr 04/12/19 19:30 04/12/19 19:49 Thiamine HCl 200 mg/ Chromium/ IV 04/12/19 23:33 250 mls/hr Copper/Manganese/Seleni/Zn 1 ONETIME ONE Administration ml/ Lactated Ringer's Midazolam HCl Confirm 04/13/19 07:02 Versed 1 Mg/Ml Administered 04/13/19 07:03 Dose 2 mg .ROUTE .STK-MED ONE Multivitamins/Minerals Confirm 04/12/19 19:31 04/12/19 19:50 Infuvite Adult Administered 04/12/19 19:32 Not Given Dose 10 ml IV .STK-MED ONE Propofol Confirm 04/13/19 07:02 Diprivan 20 Ml Administered 04/13/19 07:03 Dose 200 mg .ROUTE .STK-MED ONE Thiamine HCl Confirm 04/12/19 19:31 04/12/19 19:50 Vitamin B-1 Administered 04/12/19 19:32 Not Given Dose 200 mg .ROUTE .STK-MED ONE - Re-Assessments/Exams Free Text/Narrative Re-Assessment/Exam: 04/12/19 18:16 An IV was started, patient was given 25 g of fentanyl and the case was discussed with Dr. Winters. He asked that she be admitted with IV fluids, sips of oral fluids, and pain control and will likely receive an EGD tomorrow morning if still symptomatic. Departure - Departure Time of Disposition: 18:55 Disposition: Admitted As Inpatient 67 Condition: Good Clinical Impression: Esophageal foreign body Qualifiers: Encounter type: initial encounter Qualified Code(s): T18.108A - Unspecified foreign body in esophagus causing other injury, initial encounter - Discharge Information
[2019-04-12] MEDS ORDERED: LORazepam 2 MG/ML SDV IVPUSH PRN (18:36)
[2019-04-12] MEDS ORDERED: Dextrose 5%-Lactated Ringers 1,000 ML IV SCH (18:45)
[2019-04-12] MEDS ORDERED: MVI, Adult with Vitamin K 10 ML, Thiamine 200 MG, Folic Acid 1 MG, Magnesium Sulfate 2 ... IV ONE ×5 (18:45)
[2019-04-12] MEDS ORDERED: MVI, Adult with Vitamin K 10 ML, Thiamine 200 MG, Chromium/Copper/Mang/Selen/Zn 1 ML in... IV ONE ×4 (19:30)
[2019-04-12] MEDS ORDERED: Thiamine 200 MG/2 ML MDV ONE (19:31)
[2019-04-12] MEDS ORDERED: MVI, Adult with Vitamin K 10 ML SDV IV ONE (19:31)
[2019-04-12] MEDS: fentaNYL 100 MCG/2 ML SDV IV PRN ×2 (19:40→22:01)
[2019-04-12] MEDS ORDERED: Zolpidem 5 MG Tab PO PRN (19:58)
[2019-04-12] MEDS: Ondansetron 4 MG/2 ML SDV IVPUSH PRN (20:19)
[2019-04-13] MEDS: fentaNYL 100 MCG/2 ML SDV IV PRN ×4 (00:16→06:27)
[2019-04-13] MEDS: Ondansetron 4 MG/2 ML SDV IVPUSH PRN ×2 (00:18→06:20)
[2019-04-13] MEDS ORDERED: Propofol 200 MG/20 ML SDV ONE (07:02)
[2019-04-13] MEDS ORDERED: fentaNYL 100 MCG/2 ML SDV ONE (07:02)
[2019-04-13] MEDS ORDERED: Midazolam 1 MG/ML 2 ML SDV ONE (07:02)
[2019-04-13] MEDS ORDERED: Ketorolac 60 MG/2 ML SDV ONE (07:48)
[2019-04-13] MEDS ORDERED: Ketorolac 60 MG/2 ML SDV IM ONE (07:50)
[2019-04-13 07:56] VITALS: BP 107/89
--- NOTE | 2019-04-13 11:26 | OR ---
DATE OF PROCEDURE: 04/13/2019 PREOPERATIVE DIAGNOSIS: Possible food impaction at gastrojejunostomy. POSTOPERATIVE DIAGNOSES: 1. Previous impacted food passed beyond gastrojejunostomy. 2. Mild stricture of gastrojejunostomy. OPERATIVE PROCEDURE: Upper GI endoscopy with dilation of gastrojejunostomy (79210). ANESTHESIA: IV sedation. INDICATION FOR PROCEDURE: A 63-year-old female, presenting with some food impacted in the gastrojejunostomy. This has happened several times previously related to the patient's poor dentition. She thinks she has a radish caught in it at this time and was admitted overnight, and plan is to proceed with an upper GI endoscopy with removal of foreign body, if the food impaction remains in place, and other procedures as indicated. Potential risks including bleeding and perforation were discussed, and the patient wishes to proceed. DETAILS OF PROCEDURE: The patient was taken to the operating room, placed in a left lateral decubitus position. IV sedation was administered, after which the upper GI endoscope was passed orally through the length of the esophagus and into the gastric pouch. The food that had previously been lodged had now apparently cleared. There was a mild stricturing of the gastrojejunostomy, and the Bard gastrointestinal balloon catheter was centered across this anastomosis and inflated to 54-Mongolian size and held in position for 1 minute, after which the balloon catheter was deflated and withdrawn. The scope could easily then be passed through the anastomosis. No complications were noted, and the patient tolerated the procedure well. Mingo Winters MD /[id number]
--- NOTE | 2019-04-13 11:32 | DISCH ---
FINAL DIAGNOSES: 1. Food impaction at gastrojejunostomy. 2. Mild stricture of gastrojejunostomy. 3. Bariatric surgery status. 4. Poor dentition. OPERATIVE PROCEDURE: This was done on 04/13/2019, upper GI endoscopy with dilation of gastrojejunostomy. SUMMARY: This is a 63-year-old, several years status post Fatimah-en-Y gastric bypass. Due to poor dentition, she periodically comes in with food impaction. She was admitted through the emergency room last night after apparently having a radish get caught. She was admitted overnight and had an upper endoscopy performed on 04/13/19, and at that point, the food impaction had cleared. She did have a mild stricture at the gastrojejunostomy and was dilated with a 54-Hungarian dilator, and she will be discharged home after establishing adequate oral intake. We did obtain full set of bariatric laboratory studies, since she has not been seen in followup for this chronic issue for some time, and the plan will be to schedule an appointment with Desirae Nolen at [facility] in 1 month. Otherwise, she can continue her usual home medications.
--- NOTE | 2019-04-19 14:12 | ANES ---
DATE OF SERVICE: 04/15/2019 ADDENDUM: I did give this patient a total of 200 mg of propofol for her procedure. Fredi Bass CRNA /[id number]
== END 2019-04-13 10:24 | disposition home or self-care (01) ==
LOC: JP.ED 16:58 → JP.MS 18:10
PROVIDERS: ADMIT Surgery; ATTEND Surgery
DX: T18.128A Food in esophagus causing other injury, initial encounter (principal); K22.2 Esophageal obstruction; E03.9 Hypothyroidism, unspecified; E53.8 Deficiency of other specified B group vitamins; G43.909 Migraine, unspecified, not intractable, without status migrainosus; F31.9 Bipolar disorder, unspecified; F41.9 Anxiety disorder, unspecified; Z87.891 Personal history of nicotine dependence; Z79.891 Long term (current) use of opiate analgesic; Z79.899 Other long term (current) drug therapy; Z91.030 Bee allergy status
CPT/HCPCS: 36415; 43245; 80053; 82306; 82525; 82607; 82746; 83735; 84100; 84425; 84590; 84630; 85027; 96365; 96366; 96375; 96376; 99284; A9270; G0378; J1885; J2060; J2250; J2405; J2704; J3010; J3411; J7042; J7120

== ENCOUNTER 2020-08-15 14:44 | Observation (INO) | payer MEDICAID, MEDICARE ==
--- NOTE | 2020-08-15 15:57 | EDM.PDOC ---
ED HPI GENERAL MEDICAL PROBLEM - General Chief Complaint: Abdominal Pain Stated Complaint: ABD PAIN Time Seen by Provider: 08/15/20 15:24 Source of Information: Reports: Patient, RN Notes Reviewed History Limitations: Reports: No Limitations - History of Present Illness INITIAL COMMENTS - FREE TEXT/NARRATIVE: 65-year-old female presents emergency department today with complaint of foreign body stuck in her esophagus, she does have a history of gastric bypass has had foreign body stuck in her esophagus in the past. She admits to eating a piece of steak yesterday she is able to swallow her own secretions but anytime she drinks any water it comes right back up. - Related Data Allergies Allergy/AdvReac Type Severity Reaction Status Date / Time venom-honey bee Allergy Severe Anaphylactic Verified 04/12/19 17:20 [bee venom (honey bee)] Shock Home Meds: Home Meds Loperamide [Imodium] 4 mg PO DAILY PRN 10/28/13 [History] Multivitamin [Multi-Vitamin Daily] 1 tab PO DAILY 10/28/13 [History] Zolpidem [Ambien] 10 mg PO BEDTIME PRN 10/28/13 [History] ClonazePAM [KlonoPIN] 1 mg PO BID PRN 12/16/14 [History] Levothyroxine 200 mcg PO DAILY 12/16/14 [History] Papaya [Papaya Enzyme] 1 tab PO QID PRN 12/16/14 [History] *Vitamin B 1 cap PO DAILY 06/09/17 [History] Hydrocodone/Acetaminophen [Lorcet Plus 7.5-325 mg Tablet] 1 each PO Q4HR 04/12/19 [History] Past Medical History HEENT History: Reports: Impaired Vision Gastrointestinal History: Reports: Bowel Obstruction, Cholelithiasis, Chronic Diarrhea Genitourinary History: Reports: Renal Calculus 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 Hematologic History: Reports: B12 Deficiency - Infectious Disease History Infectious Disease History: Reports: Chicken Pox, Measles, Mumps - Past Surgical History HEENT Surgical History: Reports: Adenoidectomy, Oral Surgery, Tonsillectomy GI Surgical History: Reports: Appendectomy, Bariatric Procedure, Cholecystectomy, Colonoscopy, EGD, Esophageal Dilatation, Hernia Repair/Other, Lysis of Adhesions, Other (See Below) Other GI Surgeries/Procedures: food particle lodged. Female Surgical History: Reports: Tubal Ligation Musculoskeletal Surgical History: Reports: Knee Replacement Social & Family History - Family History Family Medical History: Noncontributory - Tobacco Use Smoking Status *Q: Unknown Ever Smoked - Caffeine Use Caffeine Use: Reports: Coffee, Soda Caffeine Use Comment: 1-2 per day ED ROS GENERAL - Review of Systems Review Of Systems: See Below Constitutional: Reports: No Symptoms GI/Abdominal: Reports: Difficulty Swallowing ED EXAM, GI/ABD - Physical Exam Exam: See Below Exam Limited By: No Limitations General Appearance: Alert, WD/WN, No Apparent Distress Respiratory/Chest: No Respiratory Distress GI/Abdominal Exam: Soft, Non-Tender Course - Vital Signs Last Recorded V/S: Last Vital Signs Temp 96.9 F 08/15/20 15:13 Pulse 113 H 08/15/20 15:13 Resp 16 08/15/20 15:13 BP 156/96 H 08/15/20 15:13 Pulse Ox 95 08/15/20 15:13 Departure - Departure Time of Disposition: 15:57 Disposition: Admitted As Inpatient 67 Condition: Fair Clinical Impression: Foreign body in esophagus Qualifiers: Encounter type: initial encounter Qualified Code(s): T18.108A - Unspecified foreign body in esophagus causing other injury, initial encounter - Discharge Information Referrals: PCP,None [Primary Care Provider] - Sepsis Event Note (ED) - Evaluation Sepsis Screening Result: No Definite Risk - Focused Exam Vital Signs: Vital Signs Temp Pulse Resp BP Pulse Ox 08/15/20 15:13 96.9 F 113 H 16 156/96 H 95 08/15/20 15:11 96.9 F 113 H 16 156/96 H 95 - Assessment/Plan Plan: Assessment Acuity = acute Site and laterality = dysphagia Etiology = piece of steak Manifestations = none Location of injury = Home Lab values = none Plan Called and discussed case Dr. Winters at 1540 he agreed to evaluate patient in the hospital for EGD This note was dictated using [email or web address] voice recognition software please call with any questions on syntax or grammar.
[2020-08-15] MEDS ORDERED: Ondansetron 4 MG/2 ML SDV IV PRN (15:59)
[2020-08-15] MEDS ORDERED: Sodium Chloride 0.9% 10 ML Syringe FLUSH PRN (15:59)
[2020-08-15] MEDS ORDERED: HYDROmorphone 0.5 MG/0.5 ML Syringe ONE (16:45)
[2020-08-15] MEDS: HYDROmorphone 0.5 MG/0.5 ML Syringe IVPUSH PRN ×4 (16:46→23:54)
[2020-08-15] MEDS: Lactated Ringers 1,000 ML IV SCH ×2 (16:47→23:54)
[2020-08-16] MEDS: HYDROmorphone 0.5 MG/0.5 ML Syringe IVPUSH PRN ×4 (02:37→11:09)
--- NOTE | 2020-08-16 08:44 | PCM.CONS ---
H&P History of Present Illness - General Date of Service: 08/16/20 Admit Problem/Dx: Admission Diagnosis/Problem Admission Diagnosis/Problem Dysphagia Jim states that she got a piece of steak stuck in her esophagus at her evening meal on 08/14/2020. She waited until yesterday afternoon to see if it would pass. She went to [facility] ED and admitted for Observation. Source of Information: Patient - History of Present Illness Symptom Onset Date: 08/14/20 Symptom Onset Time: 18:00 Duration of Symptoms: Reports: Getting Worse Location: Reports: Abdomen (mid epigastric area ) Quality: Reports: Ache, Burning, Pressure, Sharp, Stabbing Improves with: Reports: Medication (on Dilaudid IV ) Worsens with: Reports: Movement Associated Symptoms: Reports: Nausea/Vomiting Left Abdomen Pain Score (Numeric/FACES): 8 - Related Data Allergies/Adverse Reactions: Allergies Allergy/AdvReac Type Severity Reaction Status Date / Time venom-honey bee Allergy Severe Anaphylactic Verified 04/12/19 17:20 [bee venom (honey bee)] Shock Home Medications: Home Meds Loperamide [Imodium] 4 mg PO DAILY PRN 10/28/13 [History] Multivitamin [Multi-Vitamin Daily] 1 tab PO DAILY 10/28/13 [History] Zolpidem [Ambien] 10 mg PO BEDTIME PRN 10/28/13 [History] ClonazePAM [KlonoPIN] 1 mg PO BID PRN 12/16/14 [History] Levothyroxine 200 mcg PO DAILY 12/16/14 [History] Papaya [Papaya Enzyme] 1 tab PO QID PRN 12/16/14 [History] *Vitamin B 1 cap PO DAILY 06/09/17 [History] Hydrocodone/Acetaminophen [Lorcet Plus 7.5-325 mg Tablet] 1 each PO Q4HR 04/12/19 [History] Past Medical History HEENT History: Reports: Impaired Vision Gastrointestinal History: Reports: Bowel Obstruction, Cholelithiasis, Chronic Diarrhea Genitourinary History: Reports: Renal Calculus 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 Hematologic History: Reports: B12 Deficiency - Infectious Disease History Infectious Disease History: Reports: Chicken Pox, Measles, Mumps - Past Surgical History HEENT Surgical History: Reports: Adenoidectomy, Oral Surgery, Tonsillectomy GI Surgical History: Reports: Appendectomy, Bariatric Procedure, Cholecystectomy, Colonoscopy, EGD, Esophageal Dilatation, Hernia Repair/Other, Lysis of Adhesions, Other (See Below) Other GI Surgeries/Procedures: food particle lodged. Female Surgical History: Reports: Tubal Ligation Musculoskeletal Surgical History: Reports: Knee Replacement Social & Family History - Family History Family Medical History: Noncontributory - Tobacco Use Smoking Status *Q: Former Smoker Used Tobacco, but Quit: Yes Month/Year Tobacco Last Used: 03/2017 - Caffeine Use Caffeine Use: Reports: None Caffeine Use Comment: 1-2 per day - Recreational Drug Use Recreational Drug Use: Yes Recreational Drug Type: Reports: Marijuana/Hashish Recreational Drug Use Frequency: Monthly H&P Review of Systems - Review of Systems: Review Of Systems: Comprehensive ROS is negative, except as noted in HPI. Exam - Exam Exam: See Below - Vital Signs Vital Signs: Last Vital Signs Temp 97.7 F 08/16/20 07:43 Pulse 99 08/16/20 07:43 Resp 18 08/16/20 07:43 BP 90/42 L 08/16/20 07:43 Pulse Ox 93 L 08/16/20 07:43 Weight: 214 lb 8.156 oz - Exam Quality Assessment: DVT Prophylaxis General: Alert, Oriented, Cooperative HEENT: PERRLA Neck: Supple, Trachea Midline Lungs: Clear to Auscultation, Normal Respiratory Effort Cardiovascular: Regular Rate, Regular Rhythm GI/Abdominal Exam: Soft, Non-Tender, No Distention (Female) Exam: Deferred Rectal (Female) Exam: Deferred Back Exam: Normal Inspection, Full Range of Motion Extremities: Normal Inspection, Normal Range of Motion, No Pedal Edema Skin: Warm, Dry, Intact Neurological: Cranial Nerves Intact, Reflexes Equal Bilateral Neuro Extensive - Mental Status: Alert, Oriented x3, Normal Mood/Affect Neuro Extensive - Motor, Sensory, Reflexes: CN II-XII Intact, Normal Gait Psychiatric: Alert, Normal Affect, Normal Mood - Patient Data Lab Results Last 24 hrs: Laboratory Results - last 24 hr 08/15/20 Range/Units 17:28 SARS-CoV-2 RNA (CANDE) Negative (NEGATIVE) Sepsis Event Note - Evaluation Sepsis Screening Result: No Definite Risk - Focused Exam Vital Signs: Vital Signs Temp Temp Pulse Resp BP Pulse Ox 08/16/20 07:43 97.7 F 99 18 90/42 L 93 L 08/16/20 02:55 98.4 F 99 16 115/71 94 L 08/15/20 23:00 97.5 F 101 H 16 129/49 L 93 L Consult PN Assessment/Plan Procedures: Procedures AGENT NOS ASSAY W/OPTIC (12/16/14) ASSAY OF AMYLASE (10/20/15) ASSAY OF COPPER (04/12/19) ASSAY OF FERRITIN (05/18/15) ASSAY OF FOLIC ACID SERUM (04/12/19) ASSAY OF LACTIC ACID (12/01/16) ASSAY OF LIPASE (08/29/17) ASSAY OF MAGNESIUM (04/12/19) ASSAY OF PHOSPHORUS (04/12/19) ASSAY OF VITAMIN A (04/12/19) ASSAY OF VITAMIN B-1 (04/12/19) ASSAY OF ZINC (04/12/19) ASSAY THYROID STIM HORMONE (05/18/15) CLOSTRIDIUM AG IA (12/16/14) COMPLETE CBC AUTOMATED (04/12/19) COMPLETE CBC W/AUTO DIFF WBC (08/29/17) COMPREHEN METABOLIC PANEL (04/12/19) CT ABD & PELV W/CONTRAST (12/01/16) EGD DIAGNOSTIC BRUSH WASH (02/13/18) EGD DILATE STRICTURE (04/12/19) EGD REMOVE FOREIGN BODY (08/29/17) EMERGENCY DEPT VISIT (04/12/19) EMERGENCY DEPT VISIT (08/29/17) EMERGENCY DEPT VISIT (06/09/17) EMERGENCY DEPT VISIT (06/23/16) EMERGENCY DEPT VISIT (10/20/15) EMERGENCY DEPT VISIT (07/30/15) EMERGENCY DEPT VISIT (05/18/15) EMERGENCY DEPT VISIT (05/18/15) EMERGENCY DEPT VISIT (12/16/14) EMERGENCY DEPT VISIT (12/16/14) HYDRATE IV INFUSION ADD-ON (08/29/17) MEASURE BLOOD OXYGEN LEVEL (07/30/15) METABOLIC PANEL TOTAL CA (10/01/16) MICROBE SUSCEPTIBLE JOE (07/30/15) OCCULT BLOOD FECES (12/16/14) OVA AND PARASITES SMEARS (12/16/14) PPSV23 VACC 2 YRS+ SUBQ/IM (07/30/15) ROUTINE VENIPUNCTURE (04/12/19) SMEAR COMPLEX STAIN (12/16/14) STOOL CULTR AEROBIC BACT EA (12/16/14) THER/PROPH/DIAG INJ IV PUSH (08/29/17) THER/PROPH/DIAG INJ SC/IM (06/09/17) THER/PROPH/DIAG IV INF ADDON (04/12/19) THER/PROPH/DIAG IV INF INIT (04/12/19) TX/PRO/DX INJ NEW DRUG ADDON (04/12/19) TX/PRO/DX INJ SAME DRUG EMERGENCY DISPATCH OPERATOR (04/12/19) URINALYSIS AUTO W/SCOPE (12/01/16) URINE BACTERIA CULTURE (07/30/15) URINE CULTURE/COLONY COUNT (10/01/16) VITAMIN B-12 (04/12/19) VITAMIN D 25 HYDROXY (04/12/19) X-RAY EXAM COMPLETE ABDOMEN (07/30/15) Problem List Initiated/Reviewed/Updated: Yes My Orders Last 24 Hours: My Active Orders 08/16/20 07:57 Verify Patient Consent Obtain [RC] ASDIRECTED Schedule and have Consent signed: EGD with Removal of Foreign Body and possible Esophageal Dilation - IV/Local Sedation - Case to follow 08/16/20 09:00 Mingo Winters MD Glycopyrrolate 0.4 mg IVPUSH ONETIME ONE Plan Discharge after Procedure. Desirea Escalona
[2020-08-16] MEDS ORDERED: Glycopyrrolate 0.2 MG/ML 2 ML SDV IVPUSH ONE (09:00)
[2020-08-16] MEDS ORDERED: fentaNYL 100 MCG/2 ML SDV ONE (11:09)
[2020-08-16] MEDS ORDERED: Propofol 200 MG/20 ML SDV ONE (11:09)
[2020-08-16] MEDS ORDERED: Midazolam 1 MG/ML 2 ML SDV ONE (11:09)
[2020-08-16 12:52] VITALS: BP 108/72; PULSE 95
[2020-08-16] MEDS ORDERED: Acetaminophen 160 MG Tab,Disintegrating PO ONE (12:54)
--- NOTE | 2020-08-20 09:10 | DISCH ---
FINAL DIAGNOSIS: Food lodged in the distal esophagus and gastric pouch with an associated mild stricture of the gastrojejunostomy. SECONDARY DIAGNOSIS: Bariatric surgery status. OPERATIVE PROCEDURES: Upper gastrointestinal endoscopy with: 1. Removal of esophageal and gastric pouch foreign body. 2. Dilation of the gastrojejunostomy. SUMMARY: This is a 65-year-old female, who is status post Fatimah-en-Y gastric bypass, who for sometime has remained edentulous and periodically comes in with food lodged in the distal esophagus or the gastrojejunostomy. She did so this time after eating some steak, was admitted overnight, and underwent an upper endoscopy with removal of some remaining fragments within the distal esophagus and gastric pouch and dilation of the gastrojejunostomy. Following this, she was able to resume a full liquid diet without difficulty. She will be discharged home with a full liquid diet x3 days and resume with soft, well-chewed diet and will also draw post bariatric surgery labs, as these have not been done for some time, and she will be set up to see Desirae Nolen in [facility] in 1 month.
--- NOTE | 2020-08-20 14:25 | OR ---
DATE OF PROCEDURE: 08/16/2020 SURGEON: Mingo Winters MD PREOPERATIVE DIAGNOSIS: Foreign body within esophagus. POSTOPERATIVE DIAGNOSES: 1. Foreign body within esophagus (old meat). 2. Marked mild stricture at gastrojejunostomy. OPERATIVE PROCEDURE: Upper GI endoscopy with: 1. Removal of foreign body from distal esophagus and gastric pouch (89766). 2. Dilation of gastrojejunostomy (71100). ANESTHESIA: IV sedation. INDICATION FOR PROCEDURE: This is a 65-year-old patient status post Fatimah-en-Y gastric bypass. She has remained edentulous for sometime and periodically comes in with meat lodged within the distal esophagus at gastrojejunostomy. The plan is to proceed with upper GI endoscopy with removal of foreign body and dilation of the gastrojejunostomy as indicated. Potential risks of the procedure including bleeding and perforation were discussed, and the patient wishes to proceed. DETAILS OF PROCEDURE: The patient was taken to the operating room and placed in a left lateral decubitus position. IV sedation was administered, after which the upper GI endoscope was passed orally through the length of the esophagus, the distal esophagus, and into the gastric pouch. There was some fragmented old food which was still present. This was gradually pushed out from the esophagus and pouch into the Fatimah limb, where it was then passed from that point. Once this was all cleared, Bard gastrointestinal catheter was then centered across the anastomosis and inflated to 54-Green[place]ic size. This was held in position for 1 minute, after which the balloon catheter was withdrawn. The patient was noted to have some degree of dilation having occurred and the procedure was then concluded. She was taken to the recovery room in satisfactory condition. Mingo Winters MD /[id number]
== END 2020-08-16 13:54 | disposition home or self-care (01) ==
LOC: JP.ED 14:44 → JP.2SS 17:15
PROVIDERS: ADMIT Surgery; ATTEND Surgery
DX: T18.128A Food in esophagus causing other injury, initial encounter (principal); K94.29 Other complications of gastrostomy; E03.9 Hypothyroidism, unspecified; F31.9 Bipolar disorder, unspecified; F41.9 Anxiety disorder, unspecified; R63.3 Feeding difficulties; Z01.812 Encounter for preprocedural laboratory examination; Z20.828 Contact with and (suspected) exposure to other viral communicable diseases; Z87.891 Personal history of nicotine dependence; Z98.84 Bariatric surgery status; Z91.030 Bee allergy status; Z79.890 Hormone replacement therapy; Z79.899 Other long term (current) drug therapy
CPT/HCPCS: 43245; 43247; 80053; 82306; 82525; 82607; 82728; 82746; 83735; 84100; 84590; 84630; 85027; 96361; 96374; 99284; J1170; J2250; J2405; J2704; J3010; J7120; U0002; 36415; 96375; 96376; G0378

== ENCOUNTER 2023-03-14 15:12 | Observation (INO) | payer MEDICARE ==
[2023-03-14] MEDS ORDERED: Sodium Chloride 0.9% 10 ML Syringe FLUSH PRN (16:31)
[2023-03-14 17:21] LABS: ESTIMATED GFR 99 mL/min (>60)
[2023-03-14] MEDS ORDERED: Ketorolac 30 MG/ML SDV IM ONE (17:48)
[2023-03-14] MEDS ORDERED: HYDROmorphone 0.5 MG/0.5 ML Syringe IVPUSH ONE (18:40)
[2023-03-14] MEDS ORDERED: Ondansetron 4 MG/2 ML SDV IV PRN (19:56)
[2023-03-14] MEDS ORDERED: Ondansetron 4 MG Tab.DIS PO PRN (19:56)
[2023-03-14] MEDS ORDERED: Acetaminophen 325 MG Tab PO PRN (19:56)
[2023-03-14 20:28] LABS: CORONAVIRUS COVID-19 NAA NEGATIVE (NEGATIVE)
[2023-03-14] MEDS ORDERED: Pantoprazole 40 MG Vial IVPUSH ONE (20:33)
[2023-03-14] MEDS: Sodium Chloride 0.9% 1,000 ML IV SCH (21:21)
[2023-03-14] MEDS: LORazepam 1 MG Tab PO PRN (21:46)
[2023-03-14] MEDS: HYDROmorphone 0.5 MG/0.5 ML Syringe IVPUSH PRN (22:12)
[2023-03-14] MEDS ORDERED: Thiamine 200 MG/2 ML MDV ONE (23:17)
[2023-03-14] MEDS: Folic Acid 50 MG/10 ML MDV IV SCH (23:28)
[2023-03-14] MEDS: Thiamine 100 MG in Sodium Chloride 0.9% 100 ML IV SCH (23:36)
[2023-03-15] MEDS: HYDROmorphone 0.5 MG/0.5 ML Syringe IVPUSH PRN ×2 (02:37→06:59)
[2023-03-15] MEDS: Sodium Chloride 0.9% 1,000 ML IV SCH (02:37)
[2023-03-15] MEDS ORDERED: MVI, Adult with Vitamin K 10 ML in Sodium Chloride 0.9% 1,000 ML IV ONE ×2 (08:00)
[2023-03-15] MEDS ORDERED: Propofol 200 MG/20 ML SDV ONE (08:00)
[2023-03-15] MEDS ORDERED: Rocuronium 50 MG/5 ML Vial ONE (08:00)
[2023-03-15] MEDS ORDERED: Magnesium Sulfate/Water 2 GM in Premix Bag 1 BAG IV ONE (08:00)
[2023-03-15] MEDS ORDERED: fentaNYL 100 MCG/2 ML SDV ONE (08:00)
[2023-03-15] MEDS ORDERED: Succinylcholine 200 MG/10 ML MDV ONE (08:00)
[2023-03-15] MEDS ORDERED: Dexamethasone 4 MG/ML SDV ONE (08:15)
[2023-03-15] MEDS ORDERED: Ondansetron 4 MG/2 ML SDV ONE (08:15)
[2023-03-15] MEDS ORDERED: Lactated Ringers 1,000 ML ONE (08:24)
[2023-03-15] MEDS ORDERED: ePHEDrine 50 MG/ML SDV ONE (08:26)
[2023-03-15] MEDS ORDERED: Pantoprazole 40 MG Vial IVPUSH SCH (08:30)
[2023-03-15] MEDS ORDERED: Glycopyrrolate 0.2 MG/ML 5 ML MDV ONE (08:55)
[2023-03-15] MEDS ORDERED: Neostigmine Methylsulfate 1 MG/ML 5 ML Syringe ONE (08:55)
[2023-03-15] MEDS: Thiamine 100 MG in Sodium Chloride 0.9% 100 ML IV SCH (09:49)
[2023-03-15] MEDS: Folic Acid 50 MG/10 ML MDV IV SCH (09:52)
[2023-03-15] MEDS: LORazepam 1 MG Tab PO PRN (10:04)
[2023-03-15 12:36] VITALS: BP 144/66; PULSE 91
[2023-03-19 14:12] LABS: VITAMIN E(ALPHA TOCOPHEROL) 7.1 mg/L (9.0-29.0); VITAMIN E(GAMMA TOCOPHEROL) 1.1 mg/L (0.5-4.9)
== END 2023-03-15 14:00 | disposition home or self-care (01) ==
LOC: JP.ED 15:12 → JP.MS 19:34
PROVIDERS: ADMIT Student in an Organized Health Care Education/Training Program; ATTEND Student in an Organized Health Care Education/Training Program
DX: T18.128A Food in esophagus causing other injury, initial encounter (principal); K31.7 Polyp of stomach and duodenum; K29.70 Gastritis, unspecified, without bleeding; K22.2 Esophageal obstruction; N20.0 Calculus of kidney; K86.89 Other specified diseases of pancreas; K44.9 Diaphragmatic hernia without obstruction or gangrene; J44.9 Chronic obstructive pulmonary disease, unspecified; F41.1 Generalized anxiety disorder; F31.9 Bipolar disorder, unspecified; E03.9 Hypothyroidism, unspecified; E53.8 Deficiency of other specified B group vitamins; M19.90 Unspecified osteoarthritis, unspecified site; M54.50 Low back pain, unspecified; G89.29 Other chronic pain; G43.909 Migraine, unspecified, not intractable, without status migrainosus; Z98.890 Other specified postprocedural states; Z79.899 Other long term (current) drug therapy; Z79.890 Hormone replacement therapy; Z20.822 Contact with and (suspected) exposure to COVID-19; Z96.651 Presence of right artificial knee joint; Z91.030 Bee allergy status; Z87.891 Personal history of nicotine dependence; Z98.84 Bariatric surgery status
CPT/HCPCS: 0241U; 36415; 43239; 43247; 74176; 80048; 80053; 82306; 82607; 82728; 82746; 83550; 83735; 84100; 84207; 84425; 84446; 84590; 85025; 85027; 93010; 96372; 96374; 96375; 96376; 99222; 99238; 99285; A9270; C9113; G0378; J0330; J1100; J1170; J1885; J2405; J2704; J2710; J3010; J3411; J3475; J3490; J7030; J7120; Q0162; 88305